=== PATIENT | male | born 1985 | race Two or more races ===

== ENCOUNTER 2019-12-13 13:07 | Emergency (ER) | payer OTHER ==
[~2019-12-13] VITALS: Ht 177.8 cm; Wt 83.0 kg
[2019-12-13 13:17] VITALS: BP 144/97
== END 2019-12-13 13:54 | disposition home or self-care (01) ==
LOC: EDBD 13:07 → ER 13:07
DX: T16.2XXA Foreign body in left ear, initial encounter (principal); J32.9 Chronic sinusitis, unspecified; X58.XXXA Exposure to other specified factors, initial encounter; Y93.89 Activity, other specified; Y92.89 Other specified places as the place of occurrence of the external cause; Y99.8 Other external cause status